=== PATIENT | male | born 1965 | race Caucasian/White ===

== ENCOUNTER 2024-11-26 14:31 | Outpatient (AMB) | payer OTHER, SELFPAY ==
--- NOTE | 2024-11-26 14:36 | A.OFFVIS_ITS ---
Vital Signs 11/26/24 14:38 Height 5 ft 10 in Weight 201 lb BMI 28.8 BP 130/81 Blood Pressure Location Lt brachial Position Sitting Respiration 16 Pulse 74 Pulse Source Pulse Oximeter Pulse Oximetry (%) 96 Oxygen Delivery Method Room Air Intake Visit Reasons: Chronic low back pain Allergies No Known Allergies Allergy (Verified 11/26/24 14:39) Medication List - Last Reconciled 11/26/24 by Delmy Eisenberg LPN amlodipine 10 mg PO DAILY calcium carbonate (Calcium 500) 500 mg PO DAILY cholecalciferol (vitamin D3) 25 mcg PO DAILY lisinopril 40 mg PO DAILY multivitamin 1 tab PO DAILY HPI Comments Details: Not use very pleasant 59 years old gentleman who presents in my office with complains on pain in the projection of the right buttock with sensation of the numbness in bilateral thighs and radiation of the pain to the center of the spine. He also complains on severe stabbing pain in the left hip. He reported that pain started 1 year ago. He has a surgery on his lumbar spine 20 years ago however he did not complain on pain postoperatively. The pain started recently. Twenty years ago he had a surgery on his back because of the sleep in the fall and fracture in his lumbar spine. He states that there is no hardware in his back. He reports that the pain level is most severe at night and less severe in the morning. He is unable to sleep normally but it is not because of his pain. He can not do activities of daily living. 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 In terms of tissue damage he describes his pain as pulsing, throbbing, pounding, stabbing, lancinating, tingling, stinging,. He had an x-ray of the lumbar spine results of which dictated as below. He had last physical therapy 10 years ago. He had some injections with [facility] long time ago he does not remember the name of those injections. His past medical history significant for hypertension and hepatitis-C. Starting Harvoni medication now. His past surgical history significant for back surgery 20 years ago and ACDF 40 years ago. Apparently it was wrestling incident during which his neck was broken and he went for urgent surgery. He denies smoking cigarettes denies drinking alcohol denies recreational drugs drinks 1 cup of coffee a day. Review of Systems Const All systems reviewed & are unremarkable except as noted in HPI and below ENT Reports Normal hearing present Neuro Reports Normal hearing present, Denies Abnormal speech present, Denies confusion and Denies Sensory deficit (Neuro) Psych Denies confusion Physical Exam Vital Signs: Last Vital Signs Pulse 74 11/26/24 14:38 Resp 16 11/26/24 14:38 BP 130/81 11/26/24 14:38 Pulse Ox 96 11/26/24 14:38 Oxygen Delivery Method Room Air 11/26/24 14:38 BMI result Body Mass Index 28.8 Const General: no acute distress; No confusion Nutritional Appearance: obese morbidly obese Orientation/consciousness: patient oriented x3 and No confusion Eyes General: appearance normal, both eyes and all related structures Pupils: Equal, round and reactive pupils present EOM: EOMs intact bilaterally Neck Neck: Yes full ROM Chest Chest palpation & inspection: normal inspection of the chest Resp Effort & Inspection: normal respiratory effort, able to speak in complete sentences, normal respiratory pattern, no audible wheezes and no cough Cardio Jugular venous distension: no JVD GI Inspection: Yes normal to inspection Back/Spine/Pelvis Other: Able to stand on bilateral tiptoes in bilateral heels without difficulty. Able to flex himself forward and backwards without difficulty. SLR is negative on the right and equivocal on the left. Lasegue sign is positive on the left. Michael test is negative bilaterally. Pelvic compression test is negative bilaterally. Pelvic distraction test is negative bilaterally. Loading test is positive on the left. Neuro General: patient oriented x3, gait normal and No confusion Cranial nerves: Yes CN's II-XII intact bilaterally, Yes Equal, round and reactive pupils present, Yes Normal hearing present and Yes Ability to bilaterally elevate shoulders present Speech: No Abnormal speech present Gait exam (Neuro): Normal gait present Motor exam (neuro): 5/5 motor strength present throughout Sensory Exam: No Sensory deficit (Neuro) Extrem General: No pedal edema Psych Speech and movement: Normal speech and movement present Affect: normal affect Attitude: cooperative Thought process: Normal thought process present Thought content: Normal thought content present Insight: Good insight present (Psych) Judgement: Good judgement present (Psych) Results Reviewed Results Reviewed: X-ray lumbar spine: History of low back pain. Examination is limited due to patient's body habitus. There are superimposed intestinal content. There is severe narrowing of the disc space at L4-5 level and mild narrowing at L5-S1. There are hypertrophic changes in the facet joints at L4-5 and L5-S1. There arm compr ession deformity of the T12 of uncertain chronicity. There are atherosclerotic calcifications. Incidental findings of constipation. Assessment & Plan Assessment & Plan (1) Postlaminectomy syndrome: Code(s): M96.1 - Postlaminectomy syndrome, not elsewhere classified Category: Medical (2) Chronic pain syndrome: Code(s): G89.4 - Chronic pain syndrome Category: Medical (3) Spondylosis without myelopathy or radiculopathy, lumbar region: Code(s): M47.816 - Spondylosis without myelopathy or radiculopathy, lumbar region Category: Medical Plan We agreed today that because patient did not have any noninvasive treatment modalities to help his pain to start his treatment with physical therapy. He wants open order physical therapy and he will bring it order to [place] facility. He has x-ray results are nonspecific and minimally congruent with physical exam. Due to not very clear picture on physical examination I would like to send him for the MRI of the lumbar spine.. Orders: Orders PT Evaluation and Treatment Today G89.4 - Chronic pain syndrome, M96.1 - Postlaminectomy syndrome, not elsewhere classified Basic Metabolic Panel Fasting Today G89.4 - Chronic pain syndrome, M96.1 - Postlaminectomy syndrome, not elsewhere classified MR lumbar spine wo/w con Today G89.4 - Chronic pain syndrome, M96.1 - Postlaminectomy syndrome, not elsewhere classified Patient Instructions: I here by testify that I spent 45 minutes in conversation with this patient as well as evaluating his prior records and diagnostic studies planning his care and organizing this note. Coding Level of Care Code New Pt Level 4 (28236) Diagnoses Postlaminectomy syndrome M96.1 Chronic pain syndrome G89.4 Spondylosis without myelopathy or radiculopathy, lumbar region M47.816
[2024-11-26 14:38] VITALS: BP 130/81; PULSE 74; RESP 16; O2SAT 96; BMI 28.8
--- OUTSIDE RECORDS SUMMARY | 2024-11-26 14:39 | XMS_ITS | Encounter Summary ---
Author Organization [facility] Address [address] [place] [address] Care Team Providers Care Farm Management Teacher Name Role Phone Tahir Conley MD Primary Care Provider [phone] Encounter Details Date Type Department Care Team (Late Contact Info) Description 07/27/2024 Lab Requisition [facility] - Main Lab [address] [facility] [place] [id number] Hal Reina MD [address] [facility] [address] [place] [address] Gastro-esophageal reflux disease without esophagitis Social History Tobacco Use Types Packs/Day Years Used Date Smoking Tobacco: Never Smokeless Tobacco: Never Alcohol Use Standard Drinks/Week Comments Not Currently 0 (1 standard drink = 0.6 oz pur e alcohol) sober 15 years Sex and Gender Information Value Date Recorded Sex Assigned at Male 09/14/2024 12:03 PM EST Legal Sex Male 6:07 AM EST Gender Identity Male 09/14/2024 12:03 PM EST Sexual Orientation Straight 09/14/2024 12 :03 PM EST documented as of this encounter Plan of Treatment Upcoming Encounters Date Type Department Care Team ([facility] Contact Info) Description 11/27/2024 10:00 AM EDT Appointment Radiology Department [address] [address] 12/21/2024 9:00 AM EDT Office Visit Adult Medicine [address] [phone] Tahir Conley MD [address] [place] [address] 02/13/2025 10:30 AM EDT Office Visit Adult [address] [phone] Tahir Conley MD [address] [place] [address] documented as of this encounter Procedures Procedure Name Priority Date/Time Associated Diagnosis Comments TISSUE EXAM Routine 07/26/2024 Gastro-esophageal reflux disease without esophagitis documented in this encounter Results * Tissue Exam (07/26/2024) Final Diagnosis Esophagus, lower third, biopsy: Inflamed esophagogastric mucosa with reactive changes. No intestinal metaplasia or dysplasia identified. Note: Alcian blue stain is performed to exclude goblet cell metaplasia from reactive changes and is interpreted as negative for intestinal metaplasia, supporting the above diagnosis. Control stains appropriately. 4:53 PM EST [facility] Clinical Information Epigastric abdominal pain,heartburn, gastro-esophageal reflux disease Finding;esophagitis 4:53 PM EST [facility] Gross Description A. Esophagus, lower third, biopsy: Labeled esophagus lower third biopsy . Received in formalin are three irregular villa mucosal tissue fragments, each measuring approximately 0.2 cm in greatest dimension, which are wrapped in paper and submitted in toto in one cassette, three pieces, multiple levels on one slide. SHERRY 4:53 PM [facility] Disclaimer NOTE: The immunohistochemical tests and in situ hybridization tests were developed and their performance characteristics were determined by [facility]. They have not been cleared or approved by the U.S. Food and Drug Administration. The FDA has determined that such clearance or approval is not necessary. These tests are used for clinical purposes. They should not be regarded as investigational or for research. This laboratory is certified under the Clinical Laboratory Improvement Amendments of 1988 (CLIA) as qualified to perform high complexity clinical laboratory testing. (controls appropriate) Unless otherwise specified, all tissue is 10% NB formalin fixed and paraffin embedded. 4:53 PM EST [facility] Tissue Esophageal structure / Unknown 07/26/2024 07/27/2024 8:03 AM EST us Hal Reina MD LAB PATHOLOGY ORDERABLES Fi nal Result [facility] [address] [place] [address], documented in this encounter Visit Diagnoses Diagnosis Gastro-esophageal reflux disease without esophagitis documented in this encounter Care Teams Farm Management Teacher Relationship Specialty Start Date End Date Tahir Conley MD [address] [place] [address] PCP - General Internal Medicine 11/18/21 documented as of this encounter
--- OUTSIDE RECORDS SUMMARY | 2024-11-26 14:39 | XMS_ITS | Continuity of Care Document ---
Author Organization [facility] Address [address] [place] [address] Phone Care Team Providers Care Medical Liaison Name Role Phone Unavailable Unavailable Unavailable Procedures Procedure Date MRI LUMBAR SPINE W/O DYE Advance Directives Directive Yes / No Effective Date File Name No Information Encounters Encounter Description Practice Location Reason(s) For Visit Diagnoses Date Provider Providers Copied on Encounter [facility], [address] [place] [address], [id number], tel:[phone] [facility] No Information 3 No Information [facility], [address] [place] [address], [id number], [place] tel:[phone] [facility] MRI lumbar spine pain (chief complaint) No Information No Information Referring Provider: DAJUAN PARIKH, [address] [place] [address], [id number]. tel:[phone] Family History Family Member Type Diagnosis Age At Onset No Information Payers Payer name Insurance type Covered democrat ID Authoriza tion(s) No Information Social History Type Description Quantity Date Captured Comments Sex Male Smoking Status No Information Chief Complaint And Reason For Visit No Information Reason For Referral Reason For Referral No Information History Of Present Illness Encounter Date Complaint History Of Prese nt Illness No Information Functional Status Date Functional Assessmen t No Information Instructions Date Instruction Additional Infor mation No Information Assessments Type Assessment Date No Information Patient Care Teams Name Effective Dates (start - stop) Status Members No Information
--- OUTSIDE RECORDS SUMMARY | 2024-11-26 14:39 | XMS_ITS | Continuity of Care Document ---
Author Organization [facility] Address [address] [place] [address] Phone Care Team Providers Care Computer Typesetter Name Role Phone Randy Barnes Unavailable Unavailable Procedures Procedure Date OFFICE/OUTPATIENT VISIT, EST SUBSEQUENT OBSERVATION CARE SUBSEQUENT OBSERVATION CARE L HRT ART/GRFT ANGIO Myocardial SPECT Imaging Multiple Studie s CARDIOVASCULAR STRESS TEST CARDIOVASCULAR STRESS TEST ECHO EXAM OF HEART OFFICE/OUTPATIENT VISIT, EST SUBSEQUENT OBSERVATION CARE ECG MONITOR/REVIEW, 24 HRS SUBSEQUENT HOSPITAL CARE TTE W/DOPPLER, COMPLETE INITIAL HOSPITAL CARE INITIAL HOSPITAL CARE SUBSEQUENT HOSPITAL CARE Stent Wirh [facility] [place] [facility] TTE W/DOPPLER, COMPLETE Advance Directives Directive Yes / No Effective Date File Name No Information Encounters Encounter Description Practice Location Reason(s) For Visit Diagnoses Date Provider Providers Copied on Encounter OFFICE/OUTPAT IENT VISIT, EST [facility] , [address] [place] [address], [id number], [place] tel:[phone] [facility] Inpatient No Information Molly Padilla. [address] [place] [address], [id number], [place]. tel:[phone] Referring Provider: Randy Barnes [address] [place] [address], [id number]. tel:[phone] SUBSEQUENT OBSERVATION CARE [facility] , [address] [place] [address], [id number], [place] tel:[phone] [facility] Outpatient No Information Molly Bhakta [address] [place] [address], [id number], [place]. tel:[phone] Referring Provider: Randy Barnes, [address] [place] [address], [id number]. tel:[phone] [facility] , [address] [place] [address], [id number], [place] tel:[phone] [facility] Inpatient No Information Molly Padilla. [address] [place] [address], [address], [place]. tel:[phone] Referring Provider: Randy Barnes, [address] [place] [address], [id number]. tel:[phone] [facility] , [address] [place] [address], [id number], [place] tel:[phone] [facility] No Information Molly Padilla. [address] [place] [address], [address], [place]. tel:[phone] Referring Provider: Randy Barnes, [address] [place] [address], [id number]. tel:[phone] OFFICE/OUTPAT IENT VISIT, EST [facility] , [address] [place] [address], [id number], [place] tel:[phone] [facility]patient No Information Harmony Elizabeth. [facility] [address] , [place], [address], [place]. Referring Provider: Clara Antunez MD, [facility] [address] , [place], [address]. [facility] , [address] [place] [address], [id number], [place] tel:[phone] [facility]patient No Information Harmony Elizabeth. [address] [place], [address], [place]. Referring Provider: Clara Antunez MD, [address] [place], [address]. SUBSEQUENT HOSPITAL CARE [facility] , [address] [place] [address], [id number], [place] tel:[phone] [facility] Inpatient No Information Harmony Elizabeth. [address] [place], [address], [place]. Referring Provider: Clara Antunez MD, [address] , [place], [address]. [facility] , [address] [place] [address], [id number], [place] tel:[phone] [facility] No Information Harmony Elizabeth. [address] [place] [place], [address], [place]. Referring Provider: Clara Antunez MD, [address], [place], [address]. INITIAL HOSPITAL CARE [facility] , [address] [place] [address], [id number], tel:[phone] [facility] Inpatient No Information Harmony Elizabeth. [address] [place], [address], [place]. Referring Provider: Clara Antunez MD, [facility] [place], [address]. INITIAL HOSPITAL CARE [facility] , [address] [place] [address], [id number], [place] tel:[phone] [facility] No Information Harmony Elizabeth. [facility] [place], [address], [place]. Referring Provider: Clara Antunez MD, [facility] [place], [address]. [facility] , [address] [place] [address], [id number], tel:[phone] [facility]patient No Information Molly Padilla. [facility] [place], [address], [place]. tel:[phone] Referring Provider: Randy Barnes, [facility] [place], [address]. tel:[phone] [facility] , [address] [place] [address], [id number], [place] tel:[phone] [facility] No Information Harmony Elizabeth. [facility] [place], [address], [place]. Referring Provider: Clara Antunez MD, [facility] [place], [address]. Family History Family Member Type Diagnosis Age At Onset No Information Payers Payer name Insurance type Covered democrat ID Authoriza tion(s) [facility] Dual Complete Preferred HMO SNP [id number] Social History Type Description Quantity Date Captured [...]
--- OUTSIDE RECORDS SUMMARY | 2024-11-26 14:39 | XMS_ITS | Clinical Summary ---
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 10:16 ET Workstation ID: [id number] Transcribed By: Self Edit Transcribed Date: 10/26/2024 10:12 ET us Venita Troncoso NP IMG US PROCEDURES Final Resul t * US Abdomen Limited (09/27/2024 10:21 AM EDT) Anatomical Region Laterality Modality Body Ultrasound 09/27/2024 10:5 3 AM EDT Impressions 09/27/2024 11:01 AM EDT Moderately limited exam. Diffuse increased hepatic echogenicity with attenuation of sound which can be related to fatty change or fibrosis. No suspicious focal liver lesion. No cholelithiasis. Stable moderate prominence of the extrahepatic biliary tree -------- FINAL REPORT -------- Dictated By: Ozzy Levin Dictated Date: 09/27/2024 10:53 ET Assigned Physician: Ozzy Levin Reviewed and Electronically Signed By: Ozzy Levin Signed Date: 09/27/2024 11:01 ET Workstation ID: [id number] Transcribed By: Self Edit Transcribed Date: 09/27/2024 10:53 ET Narrative 09/27/2024 11:01 AM EDT EXAMINATION: ABDOMEN ULTRASOUND, LIMITED CLINICAL INFORMATION: Elevated liver function testing. COMPARISON: None. TECHNIQUE: Ultrasound of the abdomen, limited FINDINGS: QUALITY: Bowel gas and habitus limited visualization of some parts of the abdomen. ??The central abdomen including the region of pancreas were partially obscured. LI - ??RADS visualization score = Visualization B: Moderate limitations JACOB for visualization scoring: A - Minimal limitations-unlikely to meaningfully affect sensitivity B - Moderate limitations-limitations may obscure small masses C - Severe limitations-limitations significantly lowers sensitivity for focal liver lesions PANCREAS: Much of the pancreas was obscured. ??No large abnormality demonstrated. ABDOMINAL AORTA/IVC: Small portions of the IVC are visualized without a definite abnormality. LIVER: The right lobe of the liver measures 17.2 cm. ??This is approximately one standard deviation above the mean expected. The liver contour is smooth. Moderate diffuse increased hepatic echogenicity. ??The portal tracts are not well visualized. ??The liver attenuates sound greater than expected. There is no suspicious focal liver lesion. ??There is an approximately 1.6 cm circumscribed nearly anechoic mass abutting the medial margin of hepatic segment IVb most consistent with a cyst. BILIARY: The gallbladder is fluid-filled. No cholelithiasis, gallbladder wall thickening, pericholecystic fluid or biliary dilation. COMMON BILE DUCT: The common duct measures 1.0 cm which is moderately dilated. ??This appears to correlate with diffuse extrahepatic biliary prominence demonstrated on outside MRI 09/09/2023. ??No definite duct calculus demonstrated. GALLBLADDER TENDERNESS: There is no reported tenderness to transducer pressure over the gallbladder. KIDNEYS: Right renal length: ??11.8 cm in greatest length Left renal length: ??Not examined. There is no dilation of the intrarenal collecting system in the right kidney. There is no suspicious focal lesion demonstrated in the right kidney. There is no shadowing calculus demonstrated ??in the right kidney. SPLEEN: Spleen measures 10.8 cm which is close to the mean expected. ??No suspicious focal abnormality FLUID: No intraperitoneal fluid demonstrated in the upper abdomen Procedure Note Ozzy Levin MD - 09/27/2024 EXAMINATION: ABDOMEN ULTRASOUND, LIMITED CLINICAL INFORMATION: Elevated liver function testing. COMPARISON: None. TECHNIQUE: Ultrasound of the abdomen, limited FINDINGS: QUALITY: Bowel gas and habitus limited visualization of some parts of theabdomen. The central abdomen including the region of pancreas werepartially obscured. LI - RADS visualization score = Visualization B: Moderate limitations JACOB for visualization scoring: A - Minimal limitations-unlikely to meaningfully affect sensitivity B - Moderate limitations-limitations may obscure small masses C - Severe limitations-limitations significantly lowers sensitivity forfocal liver lesions PANCREAS: Much of the pancreas was obscured. No large abnormalitydemonstrated. ABDOMINAL AORTA/IVC: Small portions of the IVC are visualized without adefinite abnormality. LIVER: The right lobe of the liver measures 17.2 cm. This isapproximately one standard deviation above the mean expected. The liver contour is smooth. Moderate diffuse increased hepatic echogenicity. The portal tracts arenot well visualized. The liver attenuates sound greater than expected. There is no suspicious focal liver lesion. There is an approximately 1.6cm circumscribed nearly anechoic mass abutting the medial margin ofhepatic segment IVb most consistent with a cyst. BILIARY: The gallbladder is fluid-filled. No cholelithiasis, gallbladderwall thickening, pericholecystic fluid or biliary dilation. COMMON BILE DUCT: The common duct measures 1.0 cm which is moderatelydilated. This appears to correlate with diffuse extrahepatic biliaryprominence demonstrated on outside MRI 09/09/2023. No definite ductcalculus demonstrated. GALLBLADDER TENDERNESS: There is no reported tenderness to transducerpressure over the gallbladder. KIDNEYS: Right renal length: 11.8 cm in greatest length Left renal length: Not examined. There is no dilation of the intrarenal collecting system in the rightkidney. There is no suspicious focal lesion demonstrated in the right kidney. There is no shadowing calculus demonstrated in the right kidney. SPLEEN: Spleen measures 10.8 cm which is close to the mean expected. Nosuspicious focal abnormality FLUID: No intraperitoneal fluid demonstrated in the upper abdomen IMPRESSION: Moderately limited exam. Diffuse increased hepatic echogenicity with attenuation of sound which canbe related to fatty change or fibrosis. No suspicious focal liver lesion. No cholelithiasis. Stable moderate prominence of the extrahepatic biliary tree -------- FINAL REPORT -------- Dictated By: Ozzy Levin Dictated Date: 09/27/2024 10:53 ET Assigned Physician: Ozzy Levin Reviewed and Electronically Signed By: Ozzy Levin Signed Date: 09/27/2024 11:01 ET Workstation ID: [id number] Transcribed By: Self Edit Transcribed Date: 09/27/2024 10:53 ET us Venita Troncoso NP IMG US PROCEDURES Final Resul t * (ABNORMAL) Hepatitis C antibody (09/07/2024 11:17 AM EST) Hepatitis C Antibody Positive (A) Negative LAB CHEMISTRY METHOD 09/07/2024 2:23 PM EST [facility] Comment:If confirmation of t his positive HCV Ab screening test is needed, please redraw and order HCV Viral Load. Note--> This test may not be added on due to different specimen requirements. Blood Venous blood specimen / Unknown Venipuncture / Unknown 09/07/2024 11:17 AM EST 09/07/2024 12:42 PM EST Venita Troncoso NP LAB BLOOD ORDERABLES Final Re sult [facility] [address] [place] [address], [place] [phone] * (ABNORMAL) AST, ALT, Bilirubin ELR state reportables (09/07/2024 11:17 AM EST) Only the most recent of2 resultswithin the time period is included. [facility] ALT (SGPT) 53 10 - 60 unit/L LAB CHEMISTRY METHOD 09/11/2024 2:35 PM [facility] AST (SGOT) 51(H) 10 - 42 unit/L LAB CHEMISTRY METHOD 09/11/2024 2:35 PM [facility] Bilirubin, Direct 0.3 0.0 - 0.3 mg/dL LAB CHEMISTRY METHOD 09/11/2024 2:35 PM [facility] Total Bilirubin 0.8 0.0 - 1.4 mg/dL LAB CHEMISTRY METHOD 09/11/2024 2:35 PM [facility] Blood Venous blood specimen / Unknown Venipuncture / Unknown 09/07/2024 11:17 AM EST 09/07/2024 12:42 PM EST Venita Troncoso NP LAB BLOOD ORDERABLES Final Re sult [facility] [address] [place] [address], [place] [phone] * (ABNORMAL) Hepatitis B screening panel (09/07/2024 11:17 AM EST) [facility] Hepatitis B Surface Ag Negative Negative LAB CHEMISTRY METHOD 09/07/2024 2:23 PM EST [facility] Hep B Core Total Ab Negative Negative LAB CHEMISTRY METHOD 09/07/2024 2:23 PM EST [facility] Hepatitis B Surface Ab Positive(A) Negative LAB CHEMISTRY METHOD 09/07/2024 2:23 PM EST [facility] Blood Venous blood specimen / Unknown Venipuncture / Unknown 09/07/2024 11:17 AM EST 09/07/2024 12:42 PM EST Venita Troncoso NP LAB BLOOD ORDERABLES Final Re sult Performing Organization Address City/[facility]/ZIP Co de Phone Number [facility] [address] [place] [address], [place] [phone] * (ABNORMAL) Hepatitis C virus quantitative molecular study (09/07/2024 11:17 AM EST) [facility] HCV Qual Interp Detected (A) Not Detected LAB MOLECULAR DIAGNOSTICS METHOD 09/11/2024 10:23 AM [facility] HCV RNA Quantitative 1,397,37 7(H) <12 I Unit/mL LAB MOLECULAR DIAGNOSTICS METHOD 09/11/2024 10:23 AM EST [facility] HCV RNA Quantitative Log 6.15(H) <1.08 Log IU/mL LAB MOLECULAR DIAGNOSTICS METHOD 09/11/2024 10:23 AM EST [facility] Blood Venous blood specimen / Unknown Venipuncture / Unknown 09/07/2024 11:17 AM EST 09/07/2024 12:42 PM EST us Venita Troncoso NP LAB BLOOD ORDERABLES Final Re sult [facility] [address] [place] [address], * (ABNORMAL) CBC auto differential (09/07/2024 11:17 AM EST) WBC 8.9 4.8 - 10.8 K/mcL LAB HEMETOLOGY METHOD 09/07/2024 12:56 PM EST [facility] RBC 4.60 4.50 - 5.50 M/mcL LAB HEMETOLOGY METHOD 09/07/2024 12:56 PM EST [facility] Hemoglobin 14.6 13.5 - 17.5 g/dL LAB HEMETOLOGY METHOD 09/07/2024 12:56 PM [facility] Hematocrit 41.9(L) 42.0 - 54.0 % LAB HEMETOLOGY METHOD 09/07/2024 12:56 PM [facility] MCV 91.3 79.0 - 98.0 FL LAB HEMETOLOGY METHOD 09/07/2024 12:56 PM EST [facility] MCH 31.8 27.0 - 32.0 pcg LAB HEMETOLOGY METHOD 09/07/2024 12:56 PM [facility] MCHC 34.8 32.0 - 37.0 g/dL LAB HEMETOLOGY METHOD 09/07/2024 12:56 PM EST [facility] RDW 12.3 11.0 - 15.0 % LAB HEMETOLOGY METHOD 09/07/2024 12:56 PM [facility] Platelets 240 130 - 400 K/mcL LAB HEMETOLOGY METHOD 09/07/2024 12:56 PM [facility] MPV 11.8(H) 7.0 - 11.0 FL LAB HEMETOLOGY METHOD 09/07/2024 12:56 PM [facility] NRBC 0.0 <1.0 % LAB HEMETOLOGY METHOD 09/07/2024 12:56 PM [facility] NRBC Absolute 0.00 <0.10 K/mcL LAB HEMETOLOGY METHOD 09/07/2024 12:56 PM [facility] Neutrophils Relative 58.4 % LAB HEMETOLOGY METHOD 09/07/2024 12:56 PM [facility] Lymphocytes Relative 27.5 % LAB HEMETOLOGY METHOD 09/07/2024 12:56 PM [facility] Monocytes Relative 10.0 % LAB HEMETOLOGY METHOD 09/07/2024 12:56 PM [facility] Eosinophils Relative 3.5 % LAB HEMETOLOGY METHOD 09/07/2024 12:56 PM [facility] Basophils Relative 0.3 % LAB HEMETOLOGY METHOD 09/07/2024 12:56 PM [facility] Immature Granulocytes Relative 0.3 % LAB HEMETOLOGY METHOD 09/07/2024 12:56 PM [facility] Neutrophils Absolute 5.17 1.50 - 7.00 K/mcL LAB HEMETOLOGY METHOD 09/07/2024 12:56 PM [facility] Lymphocytes Absolute 2.44 1.00 - 5.00 K/mcL LAB HEMETOLOGY METHOD 09/07/2024 12:56 PM [facility] Monocytes Absolute 0.89 0.20 - 1.00 K/mcL LAB HEMETOLOGY METHOD 09/07/2024 12:56 PM [facility] Eosinophils Absolute 0.31 0.00 - 0.50 K/mcL LAB HEMETOLOGY METHOD 09/07/2024 12:56 PM [facility] Basophils Absolute 0.03 0.00 - 0.20 K/mcL LAB HEMETOLOGY METHOD 09/07/2024 12:56 PM [facility] Immature Granulocytes Absolute 0.03 0.00 - 0.03 K/mcL LAB HEMETOLOGY METHOD 09/07/2024 12:56 PM EST [facility] Blood Venous blood specimen / Unknown Venipuncture / Unknown 09/07/2024 11:17 AM EST 09/07/2024 12:42 PM EST Venita Troncoso [employer] LAB BLOOD ORDERABLES Final Re sult Performing Organization Address City/[facility]/ZIP Co de Phone Number [facility] [address] [place] [address], [place] [phone] * Iron and TIBC (09/07/2024 11:17 AM EST) Pathologist [facility] Iron 91 50 - 160 mcg/dL LAB CHEMISTRY METHOD 09/07/2024 1:13 PM EST [facility] TIBC 317 250 - 450 mcg/dL LAB CHEMISTRY METHOD 09/07/2024 1:13 PM EST [facility] Iron Saturation 29 20 - 50 % LAB CHEMISTRY METHOD 09/07/2024 1:13 PM EST [facility] Blood Venous blood specimen / Unknown Venipuncture / Unknown 09/07/2024 11:17 AM EST 09/07/2024 12:42 PM EST Venita Troncoso [employer] LAB BLOOD ORDERABLES Final Re sult Performing Organization Address City/[facility]/ZIP Co de Phone Number [facility] [address] [place] [address], [place] [phone] * Hepatitis A antibody IgM (09/07/2024 11:17 AM EST) Hepatitis A Antibody IgM Negative Negative LAB CHEMISTRY METHOD 09/07/2024 2:25 PM EST [facility] Blood Venous blood specimen / Unknown Venipuncture / Unknown 09/07/2024 11:17 AM EST 09/07/2024 12:42 PM EST Narrative [facility] - 09/07/2024 2:25 PM EST Over the counter supplements containing high doses of biotin may interfere with this assay. ??If interference is suspected, patients shoud be retested after refraining from biotin supplements for 72 hours. Venita Troncoso [employer] LAB BLOOD ORDERABLES Final Re sult Performing Organization Address [facility]/ZIP Co de Phone Number [facility] [address] [place] [address], [place] [phone] * Hepatitis C genotype (09/07/2024 11:17 AM EST) Hepatitis C Viral RNA, Genotype, LiPA 1a 09/14/2024 4:43 AM EST [facility] Comment: The method used in this test is RT-PCR and reverse hybridization (Line Probe) of the 5' UTR and core region of the HCV genome. The analytical performance characteristics of this assay have been determined by [employer]. The modifications have not been cleared or approved by the FDA. This assay has been validated pursuant to the CLIA regulations and is used for clinical purposes. For additional information, please refer to http://education.[employer] /faq/HCVGenotyping (This link id being provided for informational/ educational purposes only.) Test Performed at: [facility] [employer] [address] ??[phone] ? I Brianna STROEY, PhD Blood Venous blood specimen / Unknown Venipuncture / Unknown 09/07/2024 11:17 AM EST 09/07/2024 12:42 PM EST Venita Troncoso [employer] LAB BLOOD ORDERABLES Final Re sult Performing Organization Address City/[facility]/ZIP Co de Phone Number [facility] [address] [place] [address] * (ABNORMAL) Ferritin (09/07/2024 11:17 AM EST) Pathologist [facility] Ferritin 631(H) 26 - 388 ng/mL LAB CHEMISTRY METHOD 09/07/2024 1:14 PM [facility] Blood Venous blood specimen / Unknown Venipuncture / Unknown 09/07/2024 11:17 AM EST 09/07/2024 12:42 PM EST us Venita Troncoso NP LAB BLOOD ORDERABLES Final Re sult [facility] [address] [place] [address], [place] [phone] * (ABNORMAL) Hepatic function panel (09/07/2024 11:17 AM EST) Total Protein 8.8(H) 6.0 - 8.0 g/dL LAB CHEMISTRY METHOD 09/07/2024 1:13 PM [facility] Albumin 3.9 3.2 - 5.0 g/dL LAB CHEMISTRY METHOD 09/07/2024 1:13 PM [facility] Total Bilirubin 0.8 0.0 - 1.4 mg/dL LAB CHEMISTRY METHOD 09/07/2024 1:13 PM [facility] Bilirubin, Direct 0.3 0.0 - 0.3 mg/dL LAB CHEMISTRY METHOD 09/07/2024 1:13 PM [facility] Bilirubin, Indirect 0.5 0.0 - 1.1 mg/dL LAB CHEMISTRY METHOD 09/07/2024 1:13 PM [facility] ALT (SGPT) 53 10 - 60 unit/L LAB CHEMISTRY METHOD 09/07/2024 1:13 PM [facility] AST (SGOT) 51(H) 10 - 42 unit/L LAB CHEMISTRY METHOD 09/07/2024 1:13 PM [facility] Alkaline Phosphatase 72 42 - 121 unit/L LAB CHEMISTRY METHOD 09/07/2024 1:13 PM [facility] Blood Venous blood specimen / Unknown Venipuncture / Unknown 09/07/2024 11:17 AM EST 09/07/2024 12:42 PM EST us Venita Troncoso NP LAB BLOOD ORDERABLES Final Re sult [facility] [address] [place] [address], [place] [phone] * (ABNORMAL) Comprehensive metabolic panel (08/14/2024 12:19 PM EST) Sodium 134 133 - 145 mmol/L LAB CHEMISTRY METHOD 08/14/2024 4:00 PM [facility] Potassium 3.9 3.5 - 5.5 mmol/L LAB CHEMISTRY METHOD 08/14/2024 4:00 PM [facility] Chloride 101 96 - 110 mmol/L LAB CHEMISTRY METHOD 08/14/2024 4:00 PM [facility] CO2 31 21 - 32 mmol/L LAB CHEMISTRY METHOD 08/14/2024 4:00 PM [facility] Anion Gap 2(L) 3 - 11 LAB CHEMISTRY METHOD 08/14/2024 4:00 PM [facility] Glucose 94 70 - 100 mg/dL LAB CHEMISTRY METHOD 08/14/2024 4:00 PM [facility] BUN 18 5 - 25 mg/dL LAB CHEMISTRY METHOD 08/14/2024 4:00 PM [facility] Creatinine 0.79 0.70 - 1.30 mg/dL LAB CHEMISTRY METHOD 08/14/2024 4:00 PM [facility] eGFR 102 >=60 mL/min/1. 73m2 LAB CHEMISTRY METHOD 08/14/2024 4:00 PM [facility] Comment:Calculation based on the??Chronic Kidney Disease Epidemiology Collaboration (CKD-EPI) equation refit??without adjustment for race. BUN/Creatinine Ratio 22.8 LAB CHEMISTRY METHOD 08/14/2024 4:00 PM [facility] Calcium 9.4 8.5 - 10.5 mg/dL LAB CHEMISTRY METHOD 08/14/2024 4:00 PM [facility] AST (SGOT) 60(H) 10 - 42 unit/L LAB CHEMISTRY METHOD 08/14/2024 4:00 PM [facility] ALT (SGPT) 70(H) 10 - 60 unit/L LAB CHEMISTRY METHOD 08/14/2024 4:00 PM [facility] Alkaline Phosphatase 67 42 - 121 unit/L LAB CHEMISTRY METHOD 08/14/2024 4:00 PM [facility] Total Protein 8.8(H) 6.0 - 8.0 g/dL LAB CHEMISTRY METHOD 08/14/2024 4:00 PM [facility] Albumin 4.1 3.2 - 5.0 g/dL LAB CHEMISTRY METHOD 08/14/2024 4:00 PM [facility] Total Bilirubin 0.7 0.0 - 1.4 mg/dL LAB CHEMISTRY METHOD 08/14/2024 4:00 PM [facility] Blood Venous blood specimen / Unknown Venipuncture / Unknown 08/14/2024 12:19 PM EST 08/14/2024 12:19 PM EST Tahir Conley MD LAB BLOOD ORDERABLES Final Result [facility] [address] [place] [address], * COLONOSCOPY (06/27/2024 2:40 PM EST) Anatomical Region Laterality Modality Endoscopy us Historical Provider GI~PROCEDURE ORDERABLES F inal Result * (ABNORMAL) Lipid panel (08/22/2023) LDL/HDL Ratio 3 0 - 4 Triglycerides 125 0 - 150 mg/dL Cholesterol 197 0 - 200 mg/dL HDL 65 >=40 mg/dL LDL Cholesterol 107(A) 0 - 100 mg/dL Blood Venous blood specimen / Unknown Historical Provider LAB BLOOD ORDERABLES Yane l Result * HIV Screening (04/05/2023) Pathologist [facility] HIV Screening abstracted Historical Provider HEALTH MAINTENANCE Final Result from Last 3 Months or Most Recently Relevant to Health Maintenance Insurance [facility] Care Teams Professor Of Architecture Relationship Specialty Start Date End Date Tahir Conley MD [address], [place] PCP - General Internal Medicine 11/18/21
== END 2024-11-26 14:58 | disposition home or self-care (01) ==
LOC: HO.PMC 14:32
PROVIDERS: PCP Internal Medicine; Referring Provider Physician Assistant; Visit Provider Anesthesiology
DX: M96.1 Postlaminectomy syndrome, not elsewhere classified (principal); G89.4 Chronic pain syndrome; M47.816 Spondylosis without myelopathy or radiculopathy, lumbar region
CPT/HCPCS: 99204

== ENCOUNTER → 2024-11-26 14:31 | Outpatient (BNVA) | payer OTHER, SELFPAY | PROVIDERS: PCP Internal Medicine; Referring Provider Physician Assistant; Visit Provider Anesthesiology | DX: M96.1 Postlaminectomy syndrome, not elsewhere classified (principal); M47.816 Spondylosis without myelopathy or radiculopathy, lumbar region; G89.4 Chronic pain syndrome | CPT/HCPCS: 99202 ==

== ENCOUNTER 2024-12-09 11:02 | Outpatient (REF) | payer OTHER, SELFPAY ==
--- NOTE | ~2024-12-09 | MR_ITS ---
CLINICAL HISTORY: Chronic Pain syndrome, postlaminectomy syndrome MR lumbar spine without gadolinium Comparison: None Findings: No scoliosis or spondylolisthesis. No acute fracture or pathologic bone lesion. Cauda equina and conus medullaris within normal limits. L1-2, L2-3, L3-4 discs remain well hydrated. Disc desiccation at L4-5 with circumferential disc bulge. Broad-based posterior disc protrusion causing significant canal or neural foraminal narrowing. Mild disc desiccation at L5-S1 with small posterior central disc protrusion and annular tear. No canal or neural foraminal narrowing. Paraspinous musculature intact. IMPRESSION: Degenerative changes at L4-5. No significant canal or neural foraminal narrowing appreciated. This document has been electronically signed by: Lizbeth Chanel MD on 12/11/2024 09:01:06
--- OUTSIDE RECORDS SUMMARY | 2024-12-09 11:04 | XMS_ITS | Continuity of Care Document ---
Author Organization [facility] Address [address] [place] [address] Phone Care Team Providers Care Belt Cleaner Name Role Phone Randy Barnes Unavailable Unavailable [...] Copied on Encounter OFFICE/OUTPAT IENT VISIT, EST [facility] , [address] [place] [address], [id number], [place] tel:[phone] [facility] Inpatient No Information Molly Padilla. [address] [place] [address], [address], [place]. tel:[phone] Referring Provider: Randy Barnes [address] [place] [address], [id number]. tel:[phone] SUBSEQUENT OBSERVATION CARE [facility] , [address] [place] [address], [id number], [place] tel:[phone] [facility] Outpatient No Information Molly Bhakta [address] [place] [address], [address], [place]. tel:[phone] Referring Provider: Randy Barnes, [address] [place] [address], [address]. tel:[phone] [facility] , [address] [place] [address], [id number], [place] tel:[phone] [facility] Inpatient No Information Molly Padilal. [address] [place] [address], [address], [place]. tel:[phone] Referring Provider: Randy Barnes, [address] [place] [address], [address]. tel:[phone] [facility] , [address] [place] [address], [id number], [place] tel:[phone] [facility] Outpatient No Information Molly Padilla. [address] [place] [address], [address], [place]. tel:[phone] Referring Provider: Randy Barnes, [address] [place] [address], [id number]. tel:[phone] OFFICE/OUTPAT IENT VISIT, EST [facility] , [address] [place] [address], [id number], [place] tel:[phone] [facility] Outpatient No Information Harmony Elizabeth. [facility] [address] , [place], [address], [place]. Referring Provider: Clara Antunez MD, [facility] [address] , [place], [address]. [facility] , [address] [place] [address], [id number], [place] tel:[phone] [facility] Inpatient No Information Harmony Elizabeth. [address] [place], [address], [place]. Referring Provider: Clara Antunez MD, [address] [place], [address]. SUBSEQUENT HOSPITAL CARE [facility] , [address] [place] [address], [id number], [place] tel:[phone] [facility] Inpatient No Information Harmony Elizabeth. [address] [place], [address], [place]. Referring Provider: Clara Antunez MD, [address] , [place], [address]. [facility] , [address] [place] [address], [id number], [place] tel:[phone] [facility] Inpatient No Information Harmony Elizabeth. [address] [place], [address], [place]. Referring Provider: Clara Antunez MD, [address], [place], [address]. INITIAL HOSPITAL CARE [facility] , [address] [place] [address], [id number], tel:[phone] [facility] Inpatient No Information Harmony Elizabeth. [address] [place], [address], [place]. Referring Provider: Clara Antunez MD, [facility] [place], [address]. INITIAL HOSPITAL CARE [facility] , [address] [place] [address], [id number], [place] tel:[phone] [facility] Inpatient No Information Harmony Elizabeth. [facility] [place], [address], [place]. Referring Provider: Clara Antunez MD, [facility] [place], [address]. [facility] , [address] [place] [address], [id number], tel:[phone] [facility] Inpatient No Information Molly Padilla. [facility] [place], [address], [place]. tel:[phone] Referring Provider: Randy Barnes, [facility] [place], [address]. tel:[phone] [facility] , [address] [place] [address], [id number], [place] tel:[phone] [facility] Inpatient No Information Harmony Elizabeth. [facility] [place], [address], [place]. Referring Provider: Clara Antunez MD, [facility] [place], [address]. Family History Family Member Type Diagnosis Age At Onset No Information Payers Payer name Insurance type Covered constitution party ID Authoriza tion(s) [facility] Dual Complete Preferred HMO SNP [id number] Social History Type Description Quantity Date Captured [...]
== END 2024-12-09 11:03 | disposition home or self-care (01) ==
LOC: HO.MRI 11:02
PROVIDERS: PCP Internal Medicine; Visit Provider Anesthesiology
DX: M96.1 Postlaminectomy syndrome, not elsewhere classified (principal); G89.4 Chronic pain syndrome
CPT/HCPCS: 72148

== ENCOUNTER → 2024-12-09 11:13 | Outpatient (BNV) | payer OTHER, SELFPAY | PROVIDERS: PCP Internal Medicine; Visit Provider Radiology Diagnostic Radiology | DX: M51.360 Other intervertebral disc degeneration, lumbar region with discogenic back pain only (principal) | CPT/HCPCS: 72148 ==